=== PATIENT | female | born 1940 | race Caucasian/White ===

== ENCOUNTER 2016-10-28 17:17 | Emergency (ER) | payer OTHER ==
[~2016-10-28] VITALS: Ht 162.6 cm; Wt 91.6 kg
--- NOTE | ~2016-10-28 | EKG ---
[address] [place] [address] ELECTROCARDIOGRAM REPORT Name: SERGO MARISCALAN Khadra Room #: [facility]#: [id number] Admission: 10/28/16 Attend Phys: Discharge: 10/28/16 Date of : 36 Report #: [id number] THIS REPORT FOR: //name// [facility] ED Test Date: 2016-10-28 Test Time: 17:22:44 Pat Name: ROMY MARISCAL Department: Room: Gender: F Volunte[employer]: Rayna KERNS : 1940 Requested By: Ginny Garcia Order Number: [id number] MD: Shady Aponte Measurements Intervals [place] Rate: 67 P: 31 NE: 63 QRS: -2 QRSD: 82 T: 31 QT: 404 QTc: 427 Interpretive Statements Sinus rhythm Cannot rule out inferior infarct, age indeterminate No previous ECG available for comparison Electronically Signed On 10-29-2016 7:37:00 BREAST SURGEON by Shady Aponte [email or web address] <ELECTRONICALLY SIGNED> By: Shady Aponte MD, [facility] 10/29/16 0737 1722 1722 Shady Aponte MD, FACC /EPI
[~2016-10-28 17:17] MED LIST: ACETAMINOPHEN325 M1 PO; ADULT LOW DOSE81 MG PO; ALPRAZOLAM 0.0.25 M1 PO; ASPIRIN325 PO; ATROVENT30 ML; CEFDINIR300 MG PO; CEFTIN 250 MG250 MG PO; CEFTIN500 MG PO; CIPROFLOXACIN500 M1 PO; CITRATE OF MAG296 ML; COLACE100 MG PO; COUMADIN 1MG TAB1 M1; COUMADIN 2 MG TA2 M1 PO; COUMADIN 2.5MG2.5 M1 PO; CYCLOBENZAPRINE5 MG PO; DIFLUCAN150 MG PO; DYAZIDE 37.5-21 EACH PO; ENDOCET 10-3251 EACH PO; ESTRACE CREAM; FUROSEMIDE 40 M40 M1 PO; IBUPROFEN 800800 M1 PO; INVANZ IV; IRON325 PO; K-DUR10 ME1 PO; KLOR-CON 1010 MEQ PO; LASIX 40 MG TAB40 M2 PO; LEVAQUIN 500 M500 MG PO; MICARDIS40 MG PO; MICONAZOLE 745 GM VAG; MIRALAX17 GM PO; MIRALAX255 GM PO; NEURONTIN 300300 M1 PO; NEURONTIN 400M400 M2 PO; NITROFURANTOIN100 MG PO; NORCO 5-325 TA1 EACH PO; OMEGA-31000 MG PO; OXYCODONE HCL10 MG PO; PACERONE 200 M200 M1 PO; PERCOCET 10-321 EACH; PERCOCET 10-321 EACH PO; PHENERGAN 25 MG25 M1; QUINU10 PD; SENNA S TABLET1 EACH PO; TRIAMTERENE-HC1 EAC1 PO; TRIAMTERENE/HCT1 CA1 PO; UROXATRAL10 MG PO; VALIUM5 MG PO; VITAMIN D1000 UNI1 PO; VITAMIN E400 UNIT PO; ZOFRAN4 MG PO; [UNRECOGNIZED DRUG - CODE]; [UNRECOGNIZED DRUG - REMARK]
[2016-10-28] MEDS ORDERED: CARBAMAZEPINE100 M2 PO (17:36)
[2016-10-28 17:57] LABS: ABSOLUTE NEUTROPHILS 2.9 thou/uL (1.4-8.2); BASOPHILS 0.7 % (0.0-2.0); EOSINOPHILS 3.1 % (0.0-3.0); HEMATOCRIT 36.1 % (37.0-47.0); HEMOGLOBIN 12.3 gm/dL (12.0-15.0); LYMPHOCYTES 35.9 % (24.0-44.0); MCH 29.5 pg (26.0-34.0); MCHC 34.2 % (28.0-37.0); MCV 86.2 fL (80.0-100.0); PLATELET COUNT 170 thou/uL (150-400); POLYS 51.3 % (36.0-66.0); RBC 4.19 mil/uL (4.20-5.00); RDW 13.5 % (10.5-14.5); WBC 5.6 thou/uL (4.0-11.0)
[2016-10-28 17:58] LABS: MANUAL DIFF NO
[2016-10-28 18:01] LABS: ANION GAP 11 mmol/L (7-16); BUN 31 mg/dL (7-18); CALCIUM 9.3 mg/dL (8.5-10.1); CHLORIDE 102 mmol/L (98-107); CO2 25 mmol/L (21-32); CREATININE 1.4 mg/dL (0.6-1.3); GLUCOSE 109 mg/dL (70-99); POTASSIUM 3.9 mmol/L (3.5-5.1); SODIUM 138 mmol/L (136-145)
[2016-10-28 18:14] LABS: NT-PRO BRAIN NAT PEPTIDE 317 pg/mL (<300); TROPONIN-I < 0.04 ng/mL (<0.04-0.07)
[2016-10-28 20:00] LABS: URINE BILIRUBIN NEGATIVE (Negative); URINE BLOOD TRACE (Negative); URINE COLOR YELLOW; URINE GLUCOSE-RANDOM* NEGATIVE (Negative); URINE KETONES NEGATIVE (Negative); URINE LEUKOCYTES-REFLEX NEGATIVE (Negative); URINE PROTEIN (DIPSTICK) NEGATIVE (Negative); URINE SPECIFIC GRAVITY 1.015 (1.003-1.035); URINE UROBILINOGEN 0.2 E.U./dl (0.2-1.0)
== END 2016-10-28 20:32 | disposition home or self-care (01) ==
LOC: ER 17:17
PROVIDERS: Emergency Medicine
DX: R07.89 Other chest pain (principal); I10 Essential (primary) hypertension; M79.7 Fibromyalgia; I69.398 Other sequelae of cerebral infarction; I25.10 Atherosclerotic heart disease of native coronary artery without angina pectoris; E78.5 Hyperlipidemia, unspecified; M19.90 Unspecified osteoarthritis, unspecified site; G43.809 Other migraine, not intractable, without status migrainosus; Z90.710 Acquired absence of both cervix and uterus; Z96.653 Presence of artificial knee joint, bilateral; Z86.718 Personal history of other venous thrombosis and embolism; Z88.1 Allergy status to other antibiotic agents; Z88.2 Allergy status to sulfonamides; Z88.8 Allergy status to other drugs, medicaments and biological substances

== ENCOUNTER 2017-04-02 18:51 | Inpatient (IN) | payer OTHER ==
[~2017-04-02] VITALS: Ht 162.6 cm; Wt 92.9 kg
[2017-04-02 18:51] VITALS: BP 173/80
[~2017-04-02 18:51] MED LIST changes: +CARBAMAZEPINE100 M2 PO
[2017-04-02] MEDS ORDERED: VALIUM5 MG PO (20:35)
[2017-04-03 02:54] VITALS: BP 125/66
[2017-04-03 03:08] VITALS: BP 108/54
[2017-04-03 03:31] LABS: ABSOLUTE NEUTROPHILS 4.4 thou/uL (1.4-8.2); BASOPHILS 0.6 % (0.0-2.0); EOSINOPHILS 1.3 % (0.0-3.0); HEMOGLOBIN 12.4 gm/dL (12.0-15.0); LYMPHOCYTES 24.9 % (24.0-44.0); MCH 29.1 pg (26.0-34.0); MCHC 33.3 g/dL (28.0-37.0); MCV 87.2 fL (80.0-100.0); MONOCYTES 10.6 % (1.0-8.0); PLATELET COUNT 165 thou/uL (150-400); POLYS 62.6 % (36.0-66.0); RBC 4.25 mil/uL (4.20-5.00); RDW 14.6 % (10.5-14.5)
[2017-04-03 03:33] LABS: MANUAL DIFF NO
[2017-04-03 03:41] LABS: CALCIUM 9.1 mg/dL (8.5-10.1); CREATININE 1.6 mg/dL (0.6-1.0); POTASSIUM 4.1 mmol/L (3.5-5.1)
[2017-04-03 09:08] VITALS: BP 104/53
[2017-04-03 16:59] VITALS: BP 123/61
[2017-04-03 20:00] VITALS: BP 104/54
[2017-04-04 04:00] VITALS: BP 116/52
[2017-04-04 04:52] LABS: HEMATOCRIT 34.2 % (37.0-47.0); HEMOGLOBIN 11.4 gm/dL (12.0-15.0); MCH 29.2 pg (26.0-34.0); MCHC 33.3 g/dL (28.0-37.0); MCV 87.6 fL (80.0-100.0); RBC 3.91 mil/uL (4.20-5.00); RDW 14.6 % (10.5-14.5)
[2017-04-04 04:59] LABS: CALCIUM 8.6 mg/dL (8.5-10.1); CREATININE 1.5 mg/dL (0.6-1.0); POTASSIUM 3.9 mmol/L (3.5-5.1)
[2017-04-04 07:34] VITALS: BP 109/46
[2017-04-04 15:25] VITALS: BP 100/40
[2017-04-04 19:18] VITALS: BP 122/59
[2017-04-04] MEDS ORDERED: ZOCOR20 MG PO (19:27)
[2017-04-05 01:15] VITALS: BP 118/52
[2017-04-05 07:20] VITALS: BP 127/55
[2017-04-05] MEDS ORDERED: NORCO 7.5-3251 EACH PO (09:25)
[2017-04-05 09:58] VITALS: BP 127/55
== END 2017-04-05 11:18 | disposition home or self-care (01) | DRG 552 ==
LOC: ER 18:51 → 5S 04-03 02:25 → EROBS 04-03 02:25 → 5S 04-03 03:00
PROVIDERS: Nurse Practitioner; Nurse Practitioner Family
DX: M47.892 Other spondylosis, cervical region (principal); I10 Essential (primary) hypertension; Z96.653 Presence of artificial knee joint, bilateral; M50.320 Other cervical disc degeneration, mid-cervical region, unspecified level; I25.10 Atherosclerotic heart disease of native coronary artery without angina pectoris; M19.90 Unspecified osteoarthritis, unspecified site; E78.5 Hyperlipidemia, unspecified; G43.909 Migraine, unspecified, not intractable, without status migrainosus; Z79.82 Long term (current) use of aspirin; Z79.899 Other long term (current) drug therapy; K59.00 Constipation, unspecified; Z86.73 Personal history of transient ischemic attack (TIA), and cerebral infarction without residual deficits; Z86.718 Personal history of other venous thrombosis and embolism; Z86.711 Personal history of pulmonary embolism; Z90.710 Acquired absence of both cervix and uterus; Z98.62 Peripheral vascular angioplasty status; Z88.2 Allergy status to sulfonamides; Z88.8 Allergy status to other drugs, medicaments and biological substances; Z95.828 Presence of other vascular implants and grafts
CPT/HCPCS: 10086

== ENCOUNTER → 2017-04-17 | Outpatient (CLI) | payer OTHER ==
[~2017-04-17] VITALS: Ht 162.6 cm; Wt 89.4 kg
[~2017-04-17] MED LIST changes: +LIPITOR10 MG PO; +NORCO 7.5-3251 EACH PO; +ZOCOR20 MG PO
--- NOTE | ~2017-04-17 | HPC ---
[facility] [address] [place] [address] PAIN MANAGEMENT CONSULTATION Name: ROMY MARISCAL Room #: REG [facility]#: [id number] Admission: 04/17/17 Attend Phys: Lucy Strange MD Discharge: Date of : 36 Report #: [id number] THIS REPORT FOR: //name// CC: Maira Strange DATE OF SERVICE: 04/17/2017 CHIEF COMPLAINT: Pain in the back of the head. HISTORY OF PRESENT ILLNESS: The patient is a 76-year-old female who has been referred to the pain clinic for evaluation of chronic and intractable pain in her neck and head. She has been experiencing sharp pain in the back of her neck and head, which radiates down into the back area. The pain is made worse when she turns and repositions her head. She is not sure of anything that makes it better. She describes it as continuous, aching, sharp and tender. She rates it an 8/10. Pressing in the back of her head can reproduce pain in this area. She denies any surgery. The patient noted worsening of her pain after a fall and striking her head about a year ago. She had a CT of her head, which did not show any significant problems. She did have some arthritis. She had used oxycodone and hydrocodone. The patient feels that there is significant stress secondary to the diagnosis of breast cancer in her [id number]-vb-trh. ALLERGIES: HEPARIN, KEFLEX, LOVENOX, SULFA, CYMBALTA, LYRICA. MEDICATIONS: Lipitor 10 mg daily, Percocet 10/325 q. 6 hours p.r.n. pain, Valium 5 mg b.i.d., Micardis 40 mg daily, Lasix 40 mg daily, MiraLax 17 grams, Maxzide 37.5/25, alprazolam 0.25 mg daily, aspirin 81 mg tablet. PAST MEDICAL HISTORY: Kidney stones, fibromyalgia, hypertension, hyperlipidemia, anxiety disorder, rectocele, chronic UTI, history of DVTs - 2011. PAST SURGICAL HISTORY: Bilateral knee replacements, rotator cuff repair, hysterectomy, blood clots 2011, toe on the left reattached. SOCIAL HISTORY: She is . Her has had a CVA. She has never smoked, denies use of alcohol, denies use of drugs. FAMILY HISTORY: Her mother , she had hypertension. Father , had a stroke. Maternal grandmother and grandfather are . Two brothers, 1 with hypertension, 1 with lung cancer. Two sisters. Son, questionable CVA at . Daughter lymphoma. Mother hypertension. REVIEW OF SYSTEMS: A 14-point indicates generally good health. [facility] [address] [place] [address] PAIN MANAGEMENT CONSULTATION Name: ROMY MARISCAL Room #: REG [facility] [place]#: [id number] Admission: 04/17/17 Attend Phys: Lucy Strange MD Discharge: Date of : 36 Report #: [id number] appetite, wears glasses, kidney stones, numbness and tingling sensation, stroke. LABORATORY DATA: CT of the cervical spine dated 04/02/2017 reveals findings: Alignment is anatomical. The vertebral body heights are intact without compression fracture or deformity. Multilevel degenerative disk disease is identified, greatest at C3/C4 and C6/C7. There is advanced multilevel facet arthrosis. No acute fracture or subluxation is identified. The dense and lateral masses are intact and aligned. No paravertebral soft tissue swelling is seen. The visualized intracranial structures are unremarkable. PHYSICAL EXAMINATION: Blood pressure 146/85, pulse 87, respiratory rate 16, room air saturation 95%. Height 5 feet 4 inches, weight 89 kilograms, BMI 33.8. The patient has pain and discomfort in the posterior portion of her neck. Palpation in the occipital area causes an increased amount of discomfort and reproduction of her pain. Palpation in the greater occipital area caused reproduction of the patient's pain with radiation of pain into the lateral temporal area as well as some discomfort in the neck area. ASSESSMENT: 1. Greater occipital neuralgia. 2. Hypertension. 3. History of trigeminal neuralgia. 4. Arm pain on the left. 5. Fibromyalgia. 6. Hyperlipidemia. 7. Anxiety disorder. 8. History of deep venous thrombosis with multiple clots 2011. RECOMMENDATIONS: We discussed treatment options with the patient and her . Risks and benefits of an occipital nerve block were discussed. Possible complications were reviewed. The patient elects to proceed. PROCEDURE NOTE: The patient was placed in the prone position. Her occipital area was sterilely prepped with a chlorhexidine solution. A 25-gauge needle was then advanced to the area of the greater occipital nerve. The patient states that this reproduced her pain and discomfort. Total of 9 mL of 0.5% bupivacaine and 40 mg triamcinolone was injected. The patient noted that her pain decreased from 8 to 0 at the time of discharge. She will follow up in the future as needed. We would like to thank you for letting us participate in her care. We hope she continues to improve. By: [id number] Lucy Strange MD /nt
[2017-04-17 13:32] VITALS: BP 146/85
== END | disposition home or self-care (01) ==
LOC: PAIN 06:56
DX: M54.81 Occipital neuralgia (principal); I10 Essential (primary) hypertension; G50.0 Trigeminal neuralgia; M79.7 Fibromyalgia; E78.5 Hyperlipidemia, unspecified; F41.8 Other specified anxiety disorders; Z86.718 Personal history of other venous thrombosis and embolism; Z87.442 Personal history of urinary calculi; Z96.653 Presence of artificial knee joint, bilateral; Z90.710 Acquired absence of both cervix and uterus; Z98.890 Other specified postprocedural states; Z79.899 Other long term (current) drug therapy

== ENCOUNTER → 2017-05-20 | Outpatient (CLI) | payer OTHER ==
[~2017-05-20] VITALS: Ht 162.6 cm; Wt 88.0 kg
--- NOTE | ~2017-05-20 | HPC ---
[facility] [place] [address] PAIN MANAGEMENT CONSULTATION Name: ROMY MARISCAL Room #: REG [facility]#: [id number] Admission: 05/20/17 Attend Phys: Lucy Strange MD Discharge: Date of : 36 Report #: [id number] THIS REPORT FOR: //name// CC: Maira Strange The patient is seen on 05/20/[address] Adriel Strange. FOLLOWUP COMPLAINT: The pain increased or decreased significantly after the last injection. FOLLOWUP HISTORY: The patient is a 76-year-old female who has been seen in the pain clinic because of occipital neuralgia. As you may recall, she fell and hit her hand about a year ago. She has been having pain and discomfort since that time. She underwent an occipital nerve block at the last visit. She returns today indicating that her pain has improved significantly after that greater than about 70%. She has noted some recurrence of her pain and discomfort. Overall, she feels that things are still much better than they were before would like to pursue another injection. PHYSICAL EXAMINATION: VITAL SIGNS: Blood pressure 111/56, pulse 77, respiratory rate 18, room air saturation 96%. Height 5 feet 4 inches, weight 194 pounds, BMI is 33. EXTREMITIES: The patient has not fallen since we saw her last. She is having some pain in the back of her neck with some pain radiating up into the right occipital area. She describes it as tender, aching and sharp especially when palpation to this area. Pain is worse when she lies down at night to sleep. IMPRESSION: 1. Cervical radiculopathy, improved after the last occipital nerve block. 2. Hypertension. 3. Hyperlipidemia. 4. Anxiety disorder. 5. History of deep venous thrombosis with multiple clots in 2011. 6. History of kidney stones. RECOMMENDATIONS: We discussed treatment options with the patient. Risks and benefits of another occipital nerve block were discussed. Possible complications of this procedure were again reviewed. The patient elects to proceed. PROCEDURE NOTE: The patient was placed in the prone position. Her neck was sterilely prepped with a chlorhexidine solution on the right side. This allowed bowel to dry. A 25-gauge needle was then injected at the area of the greater occipital nerve. The patient states that this reproduced her pain and discomfort. A total of 40 mg triamcinolone and 10 mL of 0.5% bupivacaine was [address] [address] PAIN MANAGEMENT CONSULTATION Name: MARISCALROMY Room #: REG [facility]#: [id number] Admission: 05/20/17 Attend Phys: Lucy Strange MD Discharge: Date of : 36 Report #: [id number] injected. The patient's pain decreased to 0 at the time of discharge. She will follow up in the future as needed. We would like to thank you for letting us participate in her care. We hope she continues to improve. By: [id number] Lucy Strange MD /dhaval
[2017-05-20 10:27] VITALS: BP 111/56
== END | disposition home or self-care (01) ==
LOC: PAIN 07:05
DX: M54.81 Occipital neuralgia (principal); I10 Essential (primary) hypertension; M54.12 Radiculopathy, cervical region; E78.5 Hyperlipidemia, unspecified; F41.9 Anxiety disorder, unspecified; Z68.33 Body mass index [BMI] 33.0-33.9, adult; Z98.890 Other specified postprocedural states

== ENCOUNTER 2017-06-10 16:16 | Emergency (ER) | payer OTHER ==
[~2017-06-10] VITALS: Ht 162.6 cm; Wt 86.2 kg
[2017-06-10] MEDS ORDERED: ALPRAZOLAM 0.0.25 M1 PO (16:48)
[2017-06-10] MEDS ORDERED: TRAZODONE HCL50 MG PO (16:48)
[2017-06-10 16:53] LABS: HEMATOCRIT 39.8 % (37.0-47.0); HEMOGLOBIN 13.2 gm/dL (12.0-15.0); MCH 28.6 pg (26.0-34.0); MCHC 33.2 g/dL (28.0-37.0); MCV 86.2 fL (80.0-100.0); RBC 4.62 mil/uL (4.20-5.00); RDW 16.5 % (10.5-14.5); WBC 5.6 thou/uL (4.0-11.0)
[2017-06-10 16:56] LABS: CALCIUM 9.6 mg/dL (8.5-10.1); CREATININE 1.6 mg/dL (0.6-1.0); POTASSIUM 4.1 mmol/L (3.5-5.1)
== END 2017-06-10 18:56 | disposition home or self-care (01) ==
LOC: ER 16:16
PROVIDERS: Emergency Medicine
DX: R19.7 Diarrhea, unspecified (principal); M79.7 Fibromyalgia; Z96.653 Presence of artificial knee joint, bilateral; Z90.710 Acquired absence of both cervix and uterus; Z88.8 Allergy status to other drugs, medicaments and biological substances; Z88.2 Allergy status to sulfonamides; Z88.1 Allergy status to other antibiotic agents

== ENCOUNTER 2017-06-24 21:04 | Emergency (ER) | payer OTHER ==
[~2017-06-24] VITALS: Ht 162.6 cm; Wt 87.5 kg
[~2017-06-24 21:04] MED LIST changes: +TRAZODONE HCL50 MG PO
[2017-06-24] MEDS ORDERED: HYDROCODONE-AP1 EAC6 PO (23:27)
[2017-06-24] MEDS ORDERED: SENNA8.6 MG PO (23:27)
== END 2017-06-25 00:13 | disposition home or self-care (01) ==
LOC: ER 21:04
DX: S16.1XXA Strain of muscle, fascia and tendon at neck level, initial encounter (principal); S39.012A Strain of muscle, fascia and tendon of lower back, initial encounter; Z90.710 Acquired absence of both cervix and uterus; Z96.653 Presence of artificial knee joint, bilateral; Z88.1 Allergy status to other antibiotic agents; Z88.2 Allergy status to sulfonamides; Z88.8 Allergy status to other drugs, medicaments and biological substances; W18.09XA Striking against other object with subsequent fall, initial encounter; Y93.89 Activity, other specified; Y92.89 Other specified places as the place of occurrence of the external cause; Y99.8 Other external cause status